=== PATIENT | male | born 1990 | race African-American/Black ===

== ENCOUNTER 2021-05-01 01:39 | Emergency (ER) | payer OTHER ==
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
[2021-05-01 03:29] VITALS: BP 127/80; TEMP 98.4; O2SAT 100
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
== END 2021-05-01 03:24 | disposition home or self-care (01) ==
LOC: ER 01:39
DX: S16.1XXA Strain of muscle, fascia and tendon at neck level, initial encounter (principal); S29.012A Strain of muscle and tendon of back wall of thorax, initial encounter; V49.40XA Driver injured in collision with unspecified motor vehicles in traffic accident, initial encounter; F17.210 Nicotine dependence, cigarettes, uncomplicated
CPT/HCPCS: 70450; 71045; 72070; 72125; 99283